=== PATIENT | male | born 1945 | race Caucasian/White ===

== ENCOUNTER 2024-09-01 18:08 | Emergency (ER) | payer MEDICARE, SELFPAY ==
[2024-09-01] VITALS (86 sets, daily range): BP systolic 94–158; BP diastolic 55–95; PULSE 63–169; RESP 8–29; TEMP 37; O2SAT 92–98; BMI 28.2
--- NOTE | 2024-09-01 18:21 | EKG_ITS ---
[facility] [address] [place] [address] Test Date: 2024-09-01 Pat Name: Nathen Gil Department: [facility] Room: Gender: Male Third Cook: CARLITOS ANDERSON : 1945 Requested By: Order Number: [id number] Reading MD: Jl Gomez MD Measurements Intervals [place] Rate: 138 P: [place]: QRS: -43 QRSD: 136 T: 101 QT: 342 QTc: 518 Interpretive Statements Atrial fibrillation with rapid ventricular response with premature ventricular or aberrantly conducted complexes Left axis deviation Left ventricular hypertrophy with QRS widening ( R in aVL , Amauri product ) Cannot rule out Anteroseptal infarct , age undetermined T wave abnormality, consider lateral ischemia NO PRIOR TRACING Electronically Signed On 09-02-2024 7:24:26 PST by Jl Gomez MD
--- NOTE | 2024-09-01 18:21 | DI.RAD.S_ITS ---
PROCEDURE: XR CHEST 1V INDICATIONS: chest pain TECHNIQUE: One view of the chest was acquired. COMPARISON: None. FINDINGS: Surgical changes and devices: Median sternotomy wires are present and appear intact. Defibrillator pads project over the chest. Lungs and pleura: Lungs are clear. No pleural effusions or pneumothorax. Mediastinum: Mediastinal contours appear normal. Heart size is normal. Bones and chest wall: No suspicious bony lesions. Overlying soft tissues appear unremarkable. IMPRESSION: No acute cardiopulmonary abnormalities or focal consolidation. Dictated by: Paxton Daniel M.D. on 09/01/2024 at 20:37 Approved by: Paxton Daniel M.D. on 09/01/2024 at 20:38
[2024-09-01] MEDS: METOPROLOL TARTRATE 5 MG/5 ML INJ IV ×3 (18:33→18:50)
--- NOTE | 2024-09-01 18:33 | ED.CHESTPAIN ---
HPI - Chest Pain General Chief Complaint: Chest Pain Stated Complaint: Chest pressure, SOB, passing out Time Seen by Provider: 09/01/24 18:33 Source: patient Mode of arrival: Wheelchair Limitations: no limitations History of Present Illness HPI narrative: 79-year-old male with history of CAD status post previous multivessel CABG, followed by physicians assistant Dr. Keenan, this evening had chest discomfort and fast heart rate sensation, sensation that he might pass out, no diaphoresis or nausea or vomiting. No history of atrial fibrillation or flutter or rhythm problems, does not recall being on amiodarone or flecainide in the past, has been taking metoprolol, still takes metoprolol. No dose changes recent. He drinks alcohol regularly but just a couple of drinks daily, last drink yesterday. Related Data Allergies Allergy/AdvReac Type Severity Reaction Status Date / Time No Known Drug Allergies Allergy Verified 09/01/24 18:18 Patient History Social History Smoking Status: Never smoker Smoking Status: Never smoker Exam Narrative Exam Narrative: GENERAL: Well-developed patient, in mild distress. HEAD: Atraumatic. Normocephalic. EYES: Pupils equal round and reactive. Extraocular motions intact. No scleral icterus. No injection or drainage. ENT: Nose without bleeding, purulent drainage. Throat without erythema, tonsillar hypertrophy or exudate. Airway patent. NECK: Trachea midline. Non tender CARDIOVASCULAR: Fast rate initial presentation, rhythm seemed unclear, without murmurs, gallops, or rubs. RESPIRATORY: Clear to auscultation. Breath sounds equal bilaterally. No wheezes, rales, or rhonchi. GASTROINTESTINAL: Abdomen soft, non-tender, nondistended. EXTREMITIES: No edema or joint tenderness. BACK: Nontender without deformity or crepitance. No flank tenderness. NEURO: AOx3. Motor functions grossly nonfocal SKIN: No rash or erythema of visible areas Initial Vital Signs Initial Vital Signs: Vital Signs Temperature 98.6 F 09/01/24 18:18 Pulse Rate 136 H 09/01/24 18:18 Respiratory Rate 18 09/01/24 18:18 Blood Pressure 117/69 09/01/24 18:18 Pulse Oximetry 97 09/01/24 18:18 Oxygen Delivery Method Room Air 09/01/24 18:18 Course Orders Ordered: ED Orders 09/01/24 18:35 CT angio chest PE protocol Stat 09/01/24 18:57 EKG-12 Lead Stat 09/01/24 19:50 EKG-12 Lead Stat 09/01/24 21:30 PTT Partial Thromboplastin Nabor Q6H 09/01/24 22:20 Troponin I Stat Discontinued Medications Aspirin (Aspirin 81 Mg Chew Tab) 324 mg PO NOW ONE Stop: 09/01/24 18:22 Last Admin: 09/01/24 21:23 Dose: 324 mg Documented By: UMA Digoxin (Digoxin 500 Mcg/2 Ml Ampul) 500 mcg IV NOW ONE Stop: 09/01/24 19:26 Last Admin: 09/01/24 19:41 Dose: 500 mcg Documented By: UMA Heparin Sodium (Porcine) (Heparin 5,000 Unit/Ml Vial) 6,500 unit 80 unit/kg (6500 unit) IV NOW ONE Stop: 09/01/24 21:22 Last Admin: 09/01/24 22:15 Dose: 6,500 unit Documented By: UMA Magnesium Sulfate (Magnesium Sulfate) 2 gm in 50 mls @ 150 mls/hr IV NOW ONE Stop: 09/01/24 19:04 Last Infusion: 09/01/24 18:58 Dose: Infused Documented By: UMA Co-signed By: LEENA Admin: 09/01/24 18:38 Dose: 150 mls/hr Documented By: UMA(2) Co-signed By: LEENA Amiodarone HCl/Dextrose (Nexterone) 150 mg in 100 mls @ 600 mls/hr IV NOW ONE Stop: 09/01/24 19:09 Last Infusion: 09/01/24 19:10 Dose: Infused Documented By: Admin: 09/01/24 18:56 Dose: 600 mls/hr Documented By: UMA(2) Amiodarone HCl/Dextrose (Nexterone) 360 mg in 200 mls @ 33.333 mls/hr IV NOW ONE; Protocol Stop: 09/02/24 01:16 Last Titration: 09/01/24 23:57 Dose: Infused Documented By: Titration: 09/01/24 19:30 Dose: 0 mls/hr, 0 mls/hr Documented By: Admin: 09/01/24 19:13 Dose: 33.3 mls/hr, 33.3 mls/hr Documented By: UMA Sodium Chloride (Normal Saline 0.9%) 1,000 mls @ 1,000 mls/hr IV BOLUS ONE Stop: 09/01/24 20:26 Last Infusion: 09/01/24 21:45 Dose: Infused Documented By: Admin: 09/01/24 20:32 Dose: 1,000 mls/hr Documented By: UMA Heparin Sodium/Dextrose (Heparin Drip) 25,000 unit in 500 mls @ 28.576 mls/hr IV CONT ALICE; Protocol Last Admin: 09/01/24 22:18 Dose: 18 units/kg/hr, 28.576 mls/hr Documented By: UMA Co-signed By: HERB Metoprolol Tartrate (Metoprolol Tartrate 5 Mg/5 Ml Inj) 5 mg IV NOW ONE Stop: 09/01/24 18:29 Last Admin: 09/01/24 18:33 Dose: 5 mg Documented By: UMA(2) Metoprolol Tartrate (Metoprolol Tartrate 5 Mg/5 Ml Inj) 5 mg IV Q5M ALICE Stop: 09/01/24 18:51 Last Admin: 09/01/24 18:50 Dose: 5 mg Documented By: UMA(2) Admin: 09/01/24 18:44 Dose: 5 mg Documented By: UMA(2) Vital Signs Vital signs: Vital Signs - 8 hr 09/01/24 19:30 09/01/24 19:30 09/01/24 19:35 Pulse Rate 65 Respiratory Rate 9 L Blood Pressure 97/62 104/61 Pulse Oximetry 94 Oxygen Delivery Method 09/01/24 19:35 09/01/24 19:40 09/01/24 19:40 Pulse Rate 68 72 Respiratory Rate 11 L 8 L Blood Pressure 94/62 Pulse Oximetry 95 95 Oxygen Delivery Method 09/01/24 19:41 09/01/24 19:44 09/01/24 19:44 Pulse Rate 70 70 Respiratory Rate 13 Blood Pressure 94/62 106/63 Pulse Oximetry 94 Oxygen Delivery Method 09/01/24 19:45 09/01/24 19:45 09/01/24 19:47 Pulse Rate 70 69 Respiratory Rate 14 17 Blood Pressure 103/75 Pulse Oximetry 94 95 Oxygen Delivery Method Room Air 09/01/24 19:47 09/01/24 19:50 09/01/24 19:50 Pulse Rate 72 Respiratory Rate 15 Blood Pressure 104/64 113/71 Pulse Oximetry 95 Oxygen Delivery Method 09/01/24 19:55 09/01/24 19:55 09/01/24 20:00 Pulse Rate 71 74 Respiratory Rate 16 14 Blood Pressure 112/72 Pulse Oximetry 94 95 Oxygen Delivery Method 09/01/24 20:00 09/01/24 20:05 09/01/24 20:05 Pulse Rate 79 Respiratory Rate 11 L Blood Pressure 104/61 108/74 Pulse Oximetry 93 Oxygen Delivery Method 09/01/24 20:09 09/01/24 20:09 09/01/24 20:10 Pulse Rate 82 Respiratory Rate 20 Blood Pressure 130/73 131/62 Pulse Oximetry 96 Oxygen Delivery Method 09/01/24 20:10 09/01/24 20:15 09/01/24 20:17 Pulse Rate 70 71 Respiratory Rate 21 10 L Blood Pressure 122/64 Pulse Oximetry 94 95 Oxygen Delivery Method 09/01/24 20:17 09/01/24 20:19 09/01/24 20:19 Pulse Rate 85 69 Respiratory Rate 22 Blood Pressure 120/75 Pulse Oximetry 94 96 Oxygen Delivery Method 09/01/24 20:20 09/01/24 20:21 09/01/24 20:21 Pulse Rate 74 77 Respiratory Rate 10 L 11 L Blood Pressure 121/65 Pulse Oximetry 96 95 Oxygen Delivery Method 09/01/24 20:25 09/01/24 20:25 09/01/24 20:30 Pulse Rate 71 70 Respiratory Rate 13 17 Blood Pressure 125/68 Pulse Oximetry 95 94 Oxygen Delivery Method Room Air 09/01/24 20:30 09/01/24 20:35 09/01/24 20:35 Pulse Rate 74 Respiratory Rate 11 L Blood Pressure 122/61 118/59 L Pulse Oximetry 94 Oxygen Delivery Method 09/01/24 20:40 09/01/24 20:45 09/01/24 20:45 Pulse Rate 76 69 Respiratory Rate 13 12 Blood Pressure 121/58 L Pulse Oximetry 94 94 Oxygen Delivery Method 09/01/24 20:50 09/01/24 20:55 09/01/24 21:00 Pulse Rate 84 77 77 Respiratory Rate 15 14 18 Blood Pressure Pulse Oximetry 94 94 93 Oxygen Delivery Method 09/01/24 21:00 09/01/24 21:05 09/01/24 21:10 Pulse Rate 92 H 80 Respiratory Rate 23 15 Blood Pressure 128/71 Pulse Oximetry 94 94 Oxygen Delivery Method 09/01/24 21:15 09/01/24 21:15 09/01/24 21:20 Pulse Rate 82 87 Respiratory Rate 12 14 Blood Pressure 121/59 L Pulse Oximetry 93 94 Oxygen Delivery Method 09/01/24 21:25 09/01/24 21:30 09/01/24 21:35 Pulse Rate 82 84 81 Respiratory Rate 13 18 15 Blood Pressure Pulse Oximetry 94 94 94 Oxygen Delivery Method 09/01/24 21:40 09/01/24 21:45 09/01/24 21:50 Pulse Rate 87 90 87 Respiratory Rate 19 11 L 17 Blood Pressure Pulse Oximetry 95 94 95 Oxygen Delivery Method 09/01/24 21:55 09/01/24 22:00 09/01/24 22:05 Pulse Rate 89 84 82 Respiratory Rate 23 12 13 Blood Pressure Pulse Oximetry 95 94 94 Oxygen Delivery Method 09/01/24 22:10 09/01/24 22:15 09/01/24 22:16 Pulse Rate 77 79 Respiratory Rate 17 19 Blood Pressure 121/72 Pulse Oximetry 94 94 Oxygen Delivery Method 09/01/24 22:16 09/01/24 22:20 09/01/24 22:25 Pulse Rate 79 80 80 Respiratory Rate 14 11 L 15 Blood Pressure Pulse Oximetry 93 94 93 Oxygen Delivery Method 09/01/24 22:30 09/01/24 22:30 09/01/24 22:30 Pulse Rate 86 86 Respiratory Rate 15 15 Blood Pressure 103/68 Pulse Oximetry 92 92 Oxygen Delivery Method 09/01/24 22:35 09/01/24 22:40 09/01/24 22:45 Pulse Rate 85 88 83 Respiratory Rate 20 22 15 Blood Pressure Pulse Oximetry 95 95 94 Oxygen Delivery Method 09/01/24 22:46 09/01/24 22:46 09/01/24 22:50 Pulse Rate 88 87 Respiratory Rate 13 22 Blood Pressure 128/63 Pulse Oximetry 95 95 Oxygen Delivery Method 09/01/24 22:55 09/01/24 23:00 09/01/24 23:00 Pulse Rate 86 86 Respiratory Rate 16 14 Blood Pressure 154/69 H Pulse Oximetry 94 94 Oxygen Delivery Method 09/01/24 23:05 09/01/24 23:10 09/01/24 23:15 Pulse Rate 78 83 84 Respiratory Rate 15 17 13 Blood Pressure Pulse Oximetry 95 95 94 Oxygen Delivery Method 09/01/24 23:15 09/01/24 23:20 09/01/24 23:25 Pulse Rate 79 84 Respiratory Rate 13 15 Blood Pressure 111/60 Pulse Oximetry 94 94 Oxygen Delivery Method 09/01/24 23:30 09/01/24 23:30 09/01/24 23:35 Pulse Rate 81 87 Respiratory Rate 16 18 Blood Pressure 109/64 Pulse Oximetry 94 94 Oxygen Delivery Method 09/01/24 23:40 09/01/24 23:45 09/01/24 23:45 Pulse Rate 82 94 H Respiratory Rate 15 29 H Blood Pressure 112/68 Pulse Oximetry 94 94 Oxygen Delivery Method 09/01/24 23:50 09/01/24 23:55 09/02/24 00:00 Pulse Rate 93 H 99 H Respiratory Rate 23 22 Blood Pressure 111/71 Pulse Oximetry 93 94 Oxygen Delivery Method 09/02/24 00:00 09/02/24 00:05 09/02/24 00:10 Pulse Rate 85 92 H 86 Respiratory Rate 11 L 11 L 16 Blood Pressure Pulse Oximetry 92 93 93 Oxygen Delivery Method 09/02/24 00:15 09/02/24 00:15 09/02/24 00:20 Pulse Rate 99 H 114 H Respiratory Rate 22 34 H Blood Pressure 126/82 Pulse Oximetry 92 Oxygen Delivery Method MDM - Chest Pain Lab Data Attestation: I reviewed the patient's lab results. Lab results narrative: White blood cell count 02082, hemoglobin 16.2, platelets adequate. Glucose 127. BUN 16 with creatinine 0.625. Sodium 133, potassium 3.9, serum CO2 21, serum chloride 103. AST 77, other LFTs normal. Lipase normal. Troponin negative/unmeasurable. Magnesium 1.7. 09/01/24 18:25 09/01/24 18:25 Labs: Lab Results 09/01/24 09/01/24 Range/Units 18:25 22:20 WBC 10.8 (4.5-11.0) X10^3/uL RBC 5.27 (4.5-5.9) X10^6/uL Hgb 16.2 (13.5-17.5) g/dL Hct 47.8 (41-53) % MCV 90.7 (80-100) fL MCH 30.7 (26-34) PG MCHC 33.9 (30-36) % RDW 13.6 (11.6-14.8) % Plt Count 165 (150-400) X10^3/uL Neut % (Auto) 54.8 (50-75) % Lymph % (Auto) 34.8 (25-40) % [place] % (Auto) 8.5 (3-14) % Eos % (Auto) 1.2 L (2-4) % Baso % (Auto) 0.7 (0-2) % Neut # (Auto) 5900 (7016-4682) /uL Lymph # (Auto) 3800 (6928-7381) /uL [place] # (Auto) 900 (0-900) /uL Eos # (Auto) 100 (0-450) /uL Baso # (Auto) 100 (0-100) /uL PT 13.0 H (9.4-12.5) SECONDS INR 1.1 (0.9-1.3) APTT 43 H (25.1-36.5) SECONDS Sodium 133 L (137-145) mmol/L Potassium 3.9 (3.4-5.1) mmol/L Chloride 103 (98-107) mmol/L Carbon Dioxide 21 L (22-32) mmol/L BUN 16 (9-20) mg/dL Creatinine 0.65 L (0.66-1.25) mg/dL Estimated GFR > 60 (>60) mL/min BUN/Creatinine Ratio 24.6 H (6-22) Glucose 127 H (80-110) mg/dL Calcium 9.3 (8.4-10.2) mg/dL Magnesium 1.7 (1.6-2.3) mg/dL Total Bilirubin 0.7 (0.2-1.3) mg/dL AST 77 H (17-59) IU/L ALT 41 (<50) IU/L Alkaline Phosphatase 72 (38-126) U/L Total Creatine Kinase 481 H (55-170) U/L Troponin I < 0.012 0.015 (0.01-0.034) ng/mL NT-Pro-B Natriuret Pep 414 (<450) pg/mL Total Protein 6.5 (6.3-8.2) g/dL Albumin 4.1 (3.5-5.0) g/dL Globulin 2.4 (1.7-4.1) g/dL Albumin/Globulin Ratio 1.7 (1.0-2.8) Lipase 100 (23-300) U/L Imaging Data Chest x-ray: Radiologist's Impression: Close Chest CTA (Signed) Lele Rodriges - 09/01/24 Chest X-Ray (Signed) Paxton Daniel - 09/01/24 Launch?Image [address] [address] XRay Report Signed Patient: Nathen Gil MR#: [id number] : 1945 Acct:[id number] Age/Sex: 79 / M Date of Service: 09/01/24 Loc: ED Accession Number: [id number] Procedure: XR chest 1V Ordering Provider: Adi Pandey D.O. PROCEDURE: XR CHEST 1V INDICATIONS: chest pain TECHNIQUE: One view of the chest was acquired. COMPARISON: None. FINDINGS: Surgical changes and devices: Median sternotomy wires are present and appear intact. Defibrillator pads project over the chest. Lungs and pleura: Lungs are clear. No pleural effusions or pneumothorax. Mediastinum: Mediastinal contours appear normal. Heart size is normal. Bones and chest wall: No suspicious bony lesions. Overlying soft tissues appear unremarkable. IMPRESSION: No acute cardiopulmonary abnormalities or focal consolidation. Dictated by: Paxton Daniel M.D. on 09/01/2024 at 20:37 Approved by: Paxton Daniel M.D. on 09/01/2024 at 20:38 CT angiogram chest.: Radiologist's Impression: [address] [address] [address] Scan Report Signed Patient: Nathen Gil MR#: [id number] : 1945 Acct:[id number] Age/Sex: 79 / M Date of Service: 09/01/24 Loc: ED Accession Number: [id number] Procedure: CT angio chest PE protocol Ordering Provider: Jacinto Hernandez MD PROCEDURE: CT ANGIO CHEST PE PROTOCOL INDICATIONS: chest pain, near syncope TECHNIQUE: After the administration of intravenous contrast, 2 mm thick sections acquired from the pulmonary apices to the posterior costophrenic angles. 3-dimensional maximum intensity projection (MIP) coronal and sagittal reformats were then acquired through the thorax. For radiation dose reduction, the following was used: automated exposure control, adjustment of mA and/or kV according to patient size. COMPARISON: None. FINDINGS: Image quality: Diagnostic. Thyroid: Within normal limits. Cardiac: Heart size within normal limits. No pericardial effusion. RV: LV ratio within normal limits. No bowing of the interventricular septum. Aorta: Thoracic aortic diameter within normal limits. Pulmonary Artery: Main pulmonary artery diameter within normal limits. Central filling defect in the right lower lobe posterior segmental artery (-103). Lungs: Mild apical predominant centrilobular and paraseptal emphysema. Bibasilar subsegmental atelectasis with lower lobe dependent bronchiolectasis. Pleura: No pneumothorax or pleural effusion. Airways: The trachea and mainstem bronchi are patent. Lymph Nodes: No mediastinal, hilar, or axillary lymphadenopathy. Esophagus: Small hiatal hernia. Bones: Prior median sternotomy. Diffuse idiopathic skeletal hyperostosis of the thoracic spine (). Diffuse osteopenia. Upper Abdomen: Subcentimeter hypodense lesions in the liver, too small to characterize, statistically likely to represent simple cysts. IMPRESSION: 1. Left lower lobe posterior segmental arterial embolism. 2. Mild emphysema with bibasilar atelectasis. These findings were communicated via telephone to the ordering provider, Dr Hernandez, by Lele Rodriges MD on 09/01/24 at 9:20 pm. Dictated by: Lele Rodriges M.D. on 09/01/2024 at 21:13 Approved by: Lele Rodriges M.D. on 09/01/2024 at 21:21 ECG Data Attestation: I personally reviewed and interpreted this ECG as follows: Interpretation: 1825, atrial fibrillation with rapid ventricular response rate 138, no obvious ST segment elevation or depression changes. QRS 136, QTC 518. 1901, atrial fibrillation with ventricular rate 81, left ventricular hypertrophy, wide QRS. QRS 142, QTC 457. 1954, atrial fibrillation with ventricular rate 69, similar appearance wide QRS LVH pattern, QRS 140, QTC 454. MDM Narrative Medical decision making narrative: 79-year-old male with history of CAD had tachyarrhythmia palpitation like symptoms and near-syncope with chest discomfort. No history of atrial fibrillation known in the past. No history of blood clots. Not taking blood thinner medications. Mentating, with wide complex tachycardia variable rate, mostly 160-170bpm, possible AFib with RVR and variable conduction or underlying bundle branch block, systolic blood pressure 140. Currently stable, though he gave verbal consent for cardioversion if need. Does take metoprolol, does drink alcohol. IV metoprolol 5 mg, IV magnesium 2g. Improved heart rate 130-120 range, wide complex again seen, atrial fibrillation noted. We will give further IV metoprolol 5 mg x 3 total doses if needed for further rate control, if blood pressure tolerates. Generally has decreased ventricular response rate after 2 doses metoprolol, 110-130 range ventricular response rate, still having intermittent runs of tachycardia 160-180, add IV amiodarone 150 mg. GFR favorable, CTA chest ordered. 1929, case discussed with on-call Cardiology [facility] Dr. Segal, who reviewed transmitted EKGs, agrees low blood pressure might be amiodarone effect, bolus in, instead of Amio infusion consider IV digoxin 0.5mg bolus for rate control if needed. IV digoxin ordered. Potassium level adequate. Agrees with need for transfer, can consult if patient transferred to [facility] facility. We are awaiting CTA chest results. 1999, heart rate further decreased after digoxin bolus and amiodarone bolus, had prior IV metoprolol doses x2, now ventricular response rate 100-120, blood pressure 100, IV fluid bolus. Await CTA results, possible transfer to [facility] or other facility with Cardiology capability. 2119, phone call from Radiology, patient has acute appearing left-sided small PE, no RV dilatation changes. See dictated report. We will initiate IV heparin bolus then infusion per PE/VTE protocol. Transfer to [facility] or other cardiology capable facility. 2144, no beds currently [facility], bed search in progress. Last vitals systolic blood pressure 120, AFib on monitor with rate now 80 temp 110 range. 2300, discussed with Dr Higgins of [facility], can accept but no bed until tomorrow. 2310, discussed with [facility], no cardiac beds available at [facility], they will query their other member facilities. 2330, case discussed with cardiology [facility] Dr Jean Paul Bolton, who accepts patient for transfer, requests through their ED, call report [phone]. DIRECTOR CREDIT RISK will contact their ED. ED [facility] able to accommodate the patient, we will arrange ground transport. Patient/family made aware. Critical Care Time Critical Care Time Critical Care Time: Yes Total Critical Care Time: 35 Attestation: The high probability of a clinically significant, sudden or life threatening deterioration of the [cardiopulmonary] system(s) required my full and direct attention, intervention and personal management. The aggregate critical care time was [45] minutes. This time is in addition to time spent performing reported procedures but includes the following: [x] Data Review and interpretation [x] Patient assessment and monitoring of vital signs [x] Documentation [x] Medication orders and management Discharge Plan Departure Patient Disposition: [facility] Clinical Impression: Atrial fibrillation with rapid ventricular response, Palpitations, Near syncope, Pulmonary embolism
[2024-09-01] MEDS: MAGNESIUM SULFATE 2 GM/50 ML PIGGYBACK IV (18:38)
[2024-09-01 18:39] LABS: Add Manual Diff / Slide Review NO; Basophils Absolute Auto 100 /uL (0-100); Basophils Percent Auto 0.7 % (0-2); Eosinophils Absolute Auto 100 /uL (0-450); Eosinophils Percent Auto 1.2 % (2-4); Hematocrit 47.8 % (41-53); Hemoglobin 16.2 g/dL (13.5-17.5); Lymphocytes Absolute Auto 3800 /uL (1100-4500); Lymphocytes Percent Auto 34.8 % (25-40); Mean Corpuscular HGB Conc 33.9 % (30-36); Mean Corpuscular Hemoglobin 30.7 PG (26-34); Mean Corpuscular Volume 90.7 fL (80-100); Monocytes Absolute Auto 900 /uL (0-900); Monocytes Percent Auto 8.5 % (3-14); Neutrophils Absolute Auto 5900 /uL (1500-7000); Neutrophils Percent Auto 54.8 % (50-75); Platelet Count 165 X10^3/uL (150-400); Red Blood Cell Count 5.27 X10^6/uL (4.5-5.9); Red Cell Distribution Width 13.6 % (11.6-14.8); White Blood Cell Count 10.8 X10^3/uL (4.5-11.0)
[2024-09-01] MEDS: AMIODARONE 150 MG/100 ML 600 MG IV (18:56)
--- NOTE | 2024-09-01 18:57 | EKG_ITS ---
[place] [id number], [place] [address] Test Date: 2024-09-01 Pat Name: Nathen Gil Department: Room: Gender: Male [place]: BRANDON : 1945 Requested By: Order Number: [id number] Reading MD: Jl Gomez MD Measurements Intervals [place] Rate: 81 P: [place]: QRS: -41 QRSD: 142 T: 123 QT: 394 QTc: 457 Interpretive Statements Atrial fibrillation Left axis deviation Left ventricular hypertrophy with QRS widening and repolarization abnormality ( R in aVL , Amauri product ) Cannot rule out Anteroseptal infarct , age undetermined Electronically Signed On 09-02-2024 7:24:35 PST by Jl Gomez MD
[2024-09-01 19:05] LABS: INR 1.1 (0.9-1.3)
[2024-09-01 19:07] LABS: PTT Partial Thromboplastin Tim 43 SECONDS (25.1-36.5)
[2024-09-01 19:08] LABS: Alanine Aminotransferase 41 IU/L (<50); Albumin 4.1 g/dL (3.5-5.0); Albumin Globulin Ratio 1.7 (1.0-2.8); Alkaline Phosphatase 72 U/L (38-126); Aspartate Aminotransferase 77 IU/L (17-59); BUN Creatinine Ratio 24.6 (6-22); Bilirubin Total 0.7 mg/dL (0.2-1.3); Blood Urea Nitrogen 16 mg/dL (9-20); Calcium 9.3 mg/dL (8.4-10.2); Carbon Dioxide 21 mmol/L (22-32); Chloride 103 mmol/L (98-107); Creatine Kinase 481 U/L (55-170); Estimated Glomerular Filt Rate > 60 mL/min (>60); Globulin 2.4 g/dL (1.7-4.1); Glucose 127 mg/dL (80-110); HEMOLYSIS 23 (0-50); Lipase 100 U/L (23-300); Magnesium 1.7 mg/dL (1.6-2.3); Potassium 3.9 mmol/L (3.4-5.1); Sodium 133 mmol/L (137-145); Total Protein 6.5 g/dL (6.3-8.2)
[2024-09-01] MEDS: AMIODARONE 360 MG/200 ML PIGGYBACK 33.3 MG IV (19:13)
[2024-09-01 19:19] LABS: NT-proBNP (BNP-Adult 18+) 414 pg/mL (<450); Troponin I < 0.012 ng/mL (0.01-0.034)
--- NOTE | 2024-09-01 19:26 | PC.NURSE ---
at triage patient very tachycardic, hypotensive, irregullar heart rhythm a fib with chest pressure 5/10, shortness of breath, and feeling like he would pass out. Patient currently denies chest pressure, dizziness, feeling like he will pass out. heart rate 50-60s with NIBP monitoring q 5 minutes. Metoprolol IV push doses completed and Amiodarone Bolus completed. Amiodarone 1st infusion running 360 mg/200 ml infusing @ 33.33 ml/hr x 6 hours. Repeat EKG completed. at bedside.
[2024-09-01] MEDS: DIGOXIN 500 MCG/2 ML AMPUL IV (19:41)
--- NOTE | 2024-09-01 19:50 | EKG_ITS ---
[facility] [address] [place] [address] Test Date: 2024-09-01 Pat Name: Nathen Gil Department: [facility] Room: Gender: Male Application Support: BRANDON : 1945 Requested By: Order Number: [id number] Reading MD: Jl Gomez MD Measurements Intervals [place] Rate: 69 P: [place]: QRS: -43 QRSD: 140 T: 132 QT: 424 QTc: 454 Interpretive Statements Atrial fibrillation Left axis deviation Left ventricular hypertrophy with QRS widening and repolarization abnormality ( R in aVL , Baxter product ) Cannot rule out Anteroseptal infarct , age undetermined NO SIGNIFICANT CHANGE FROM PRIOR TRACING Electronically Signed On 09-02-2024 7:24:41 PST by Jl Gomez MD
[2024-09-01] MEDS: SODIUM CHLORIDE 0.9% 1,000 ML 1000 ML IV (20:32)
[2024-09-01] MEDS: ASPIRIN 81 MG CHEW TAB 324 MG PO (21:23)
[2024-09-01] MEDS: HEPARIN 5,000 UNIT/ML VIAL 6500 UNIT IV (22:15)
[2024-09-01] MEDS: HEPARIN DRIP 25,000 UNIT/500 ML IV.SOLN 28.576 UNIT IV (22:18)
[2024-09-01 22:51] LABS: Troponin I 0.015 ng/mL (0.01-0.034)
--- NOTE | 2024-09-01 23:58 | PC.NURSE ---
HYDRAULIC GOVERNOR ASSEMBLER note: Attempting to find placement for patient called the following places with the following responses: [facility]: 2123 Spoke to Kanika, currently are boarding patients but patient is on their waitlist. [facility]: 2126 spoke w/ Toby. Sent packet over, patient is on their waitlist, but boarding a lot of patients. [facility]: 2141 Spoke w/ Tha. Patient was accepted but do not have beds. [facility]: 2221 spoke with Terrie. No beds [facility]: 2209 (then lots of messages, leaving messages and will get back to us) [facility], on waitlist but told us to keep looking [facility]: 2232 left a message, Zee got back to us. She had me page cardiology. Dr. Jean Paul Bolton accepted patient. [facility]: 2234 spoke w/ Yesenia, she took information. Patient is on waitlist. [facility]: 2306 spoke with Brina. She said she'd call us back. Patient was accept to [facility] to an ED to ED transfer at 2330.
[2024-09-02] VITALS: BP 111/71; PULSE 85; RESP 11; O2SAT 92
[2024-09-02 00:05] VITALS: PULSE 92; RESP 11; O2SAT 93
[2024-09-02 00:10] VITALS: PULSE 86; RESP 16; O2SAT 93
[2024-09-02 00:15] VITALS: BP 126/82; PULSE 99; RESP 22; O2SAT 92
[2024-09-02 00:20] VITALS: PULSE 114; RESP 34
--- NOTE | 2024-09-02 00:47 | PC.NURSE ---
# [phone] [facility] - called for update on patient, patient report, and requesting we fax a facesheet. Solo states patient is supposed to be a direct admit. I Explained Report had been called already and patient accepted as ER to ER with Cardiology as well. Accepting Docs Dr Santiago & Dr Hoang canseco report called to Mira RN. EMTALA Form Completed and verified. Also explained patient is on the way in Ambulance to [facility]. Solo requests we fax facesheet to and states she will us back. Notified ED HOSIERY MENDER of request for faxed facesheet & ER veterans service representative of conversation with Solo.
== END 2024-09-02 00:26 | disposition short-term general hospital (02) ==
PROVIDERS: Student in an Organized Health Care Education/Training Program; Emergency Provider Emergency Medicine
DX: I48.20 Chronic atrial fibrillation, unspecified (principal); R00.2 Palpitations; R55 Syncope and collapse; I26.99 Other pulmonary embolism without acute cor pulmonale
CPT/HCPCS: 36415; 71045; 71275; 80053; 82550; 83690; 83735; 83880; 84484; 85025; 85610; 85730; 93005; 93010; 96361; 96365; 96366; 96367; 96375; 99285; 99291; J0282; J1160; J1644; J3475; Q9967

== ENCOUNTER 2024-09-04 23:55 | Emergency (ER) | payer MEDICARE, SELFPAY ==
[2024-09-05 00:03] VITALS: BP 170/82; PULSE 52; RESP 16; TEMP 36.6; O2SAT 96; BMI 28.2
[2024-09-05 01:54] VITALS: O2SAT 98
[2024-09-05 01:55] VITALS: BP 165/76; PULSE 54; RESP 14; O2SAT 95
[2024-09-05 02:00] VITALS: BP 156/73; PULSE 53; RESP 14; O2SAT 95
--- NOTE | 2024-09-05 02:05 | ED.GENADULT ---
HPI - General Adult General Chief complaint: Hypertension Stated complaint: HIGH BLOOD PRESSURE Time Seen by Provider: 09/05/24 02:05 Source: patient Mode of arrival: Ambulatory History of Present Illness HPI narrative: Patient is a 79-year-old male past medical history of recently diagnosed AFib on Eliquis, CAD status post CABG follows with Dr. Keenan (cardiology) comes into the ED for evaluation of high blood pressure as well as bright red blood per rectum. To note patient recently diagnosed with new onset AFib approximately 4 days ago was started on Eliquis for this, states he does have a history of hemorrhoids, states he is only noticing some bright red blood whenever he wipes. He denies any other symptoms such as headache visual disturbances chest pain shortness of breath fever chills nausea vomiting abdominal pain or any other GI/ symptoms at this time. Related Data Allergies Allergy/AdvReac Type Severity Reaction Status Date / Time No Known Drug Allergies Allergy Verified 09/01/24 18:18 Review of Systems Review of Systems Narrative: General: Denies fever, chills, weight loss HEENT: Denies headache, eye drainage, eye irritation, head trauma, sore throat, voice change Cardiovascular: Positive high blood pressure Denies any chest pain, palpitations, shortness of breath, tachycardia Respiratory: Denies any shortness of breath, cough, wheeze, stridor GI/: Positive bright red blood per rectum Denies any abdominal pain, nausea, vomiting, diarrhea, melanotic stools, urinary frequency, urinary retention, dysuria, hematuria MSK: Denies any joint pain, muscle pains, swelling Skin: Denies any rashes, lesions, discoloration Neuro: Denies any headache, lightheadedness, dizziness, fainting, weakness Psych: Denies SI/HI Patient History Social History Smoking Status: Never smoker Smoking Status: Never smoker Exam Narrative Exam Narrative: General: Cooperative, comfortable, well-developed, not in acute distress HEENT: Normocephalic, atraumatic, PERRLA, normal sclera, eyelids normal, Neck: Active full range of motion, atraumatic Chest: Normal to inspection, negative crepitus, no overlying erythema ecchymosis Respiratory: Normal respiratory effort, not in acute respiratory distress, clear to auscultation bilaterally negative cough, wheeze, tachypnea, rhonchi, rales Cardiology: Regular rate rhythm negative gallop, murmur, rubs GI/: Normal to inspection, soft, nonrigid, no tenderness to palpation, exam deferred MSK: Full range of active range of motion of all 4 extremities, atraumatic Skin: No rashes lesions noted Neuro: Alert awake oriented x3, moves all 4 extremities spontaneously, cranial nerves intact, able to answer all questions appropriately follows commands appropriately Psych: Cooperative, negative suicidal or homicidal ideations Initial Vital Signs Initial Vital Signs: Vital Signs Temperature 97.9 F 09/05/24 00:03 Pulse Rate 52 L 09/05/24 00:03 Respiratory Rate 16 09/05/24 00:03 Blood Pressure 170/82 H 09/05/24 00:03 Pulse Oximetry 96 09/05/24 00:03 Oxygen Delivery Method Room Air 09/05/24 00:03 Course Orders Ordered: ED Orders 09/05/24 02:00 CMP [Comprehensive Metabolic Panel] Stat Complete Blood Count AUTO DIFF Stat PTT Partial Thromboplastin Nabor Stat Prothrombin Time INR Stat Vital Signs Vital signs: Vital Signs - 8 hr 09/05/24 00:03 09/05/24 01:54 09/05/24 01:55 Temperature 97.9 F Pulse Rate 52 L 54 L Respiratory Rate 16 14 Blood Pressure 170/82 H Pulse Oximetry 96 98 95 Oxygen Delivery Method Room Air Room Air 09/05/24 01:55 09/05/24 02:00 09/05/24 02:00 Temperature Pulse Rate 53 L Respiratory Rate 14 Blood Pressure 165/76 H 156/73 H Pulse Oximetry 95 Oxygen Delivery Method Room Air 09/05/24 02:30 09/05/24 02:31 09/05/24 02:31 Temperature Pulse Rate 49 L 51 L Respiratory Rate 14 Blood Pressure 146/72 H Pulse Oximetry 96 95 Oxygen Delivery Method Room Air Medical Decision Making Differential Diagnosis Differential Diagnosis: Hemorrhoids, anemia, hypertension Lab Data 09/05/24 02:00 09/05/24 02:00 Labs: Lab Results 09/05/24 Range/Units 02:00 WBC 8.5 (4.5-11.0) X10^3/uL RBC 5.33 (4.5-5.9) X10^6/uL Hgb 16.3 (13.5-17.5) g/dL Hct 48.3 (41-53) % MCV 90.6 (80-100) fL MCH 30.6 (26-34) PG MCHC 33.8 (30-36) % RDW 13.7 (11.6-14.8) % Plt Count 164 (150-400) X10^3/uL Neut % (Auto) 59.5 (50-75) % Lymph % (Auto) 29.1 (25-40) % Graham % (Auto) 8.6 (3-14) % Eos % (Auto) 1.8 L (2-4) % Baso % (Auto) 1.0 (0-2) % Neut # (Auto) 5100 (0058-5588) /uL Lymph # (Auto) 2500 (2619-2136) /uL Graham # (Auto) 700 (0-900) /uL Eos # (Auto) 200 (0-450) /uL Baso # (Auto) 100 (0-100) /uL PT 16.5 H (9.4-12.5) SECONDS INR 1.5 H (0.9-1.3) APTT 49 H (25.1-36.5) SECONDS Sodium 137 (137-145) mmol/L Potassium 4.3 (3.4-5.1) mmol/L Chloride 103 (98-107) mmol/L Carbon Dioxide 23 (22-32) mmol/L BUN 13 (9-20) mg/dL Creatinine 0.58 L (0.66-1.25) mg/dL Estimated GFR > 60 (>60) mL/min BUN/Creatinine Ratio 22.4 H (6-22) Glucose 98 (80-110) mg/dL Calcium 9.6 (8.4-10.2) mg/dL Total Bilirubin 0.8 (0.2-1.3) mg/dL AST 47 (17-59) IU/L ALT 39 (<50) IU/L Alkaline Phosphatase 72 (38-126) U/L Total Protein 7.1 (6.3-8.2) g/dL Albumin 4.5 (3.5-5.0) g/dL Globulin 2.6 (1.7-4.1) g/dL Albumin/Globulin Ratio 1.7 (1.0-2.8) MDM Narrative Medical decision making narrative: Patient is a 79-year-old male with a history of hypertension CABG AFib on Eliquis recent diagnosis comes into the ED for evaluation of high blood pressure. Patient states that he checked his blood pressure earlier today when he was taking his Eliquis and noted that his systolic blood pressure was in the 170s, was denying any symptoms at the time. He also states that he has intermittent bright red blood per rectum secondary to hemorrhoids, he states that he noticed a little bit more bleeding than normal today, but states that he has not having any active bleeding at this time. States that he should ?mentioned it did offer patient rectal exam however he states that he has not too concerned about it but would like lab work performed, patient without any anemia, patient has not had any intervention with his blood pressure most recent blood pressure systolic 146/72. Patient still without any headache no neurological deficits, NIH of 0. Patient was given strict return precautions he verbalized understanding of this and agrees to being discharged home with outpatient follow up. Discharge Plan Departure Patient Disposition: Home Clinical Impression: Asymptomatic hypertension Activity Restrictions/Additional Instructions: Please follow up with your primary care doctor and guest services associate for a scheduled appointment Please read the discharge instructions sheet carefully and bring all papers to all doctor follow-up visits, as it may contain information that your doctor may want to see. Disease processes change and evolve, if your symptoms worsen or if you develop any new symptoms that are concerning to you please return for evaluation. Your evaluation today does not show any evidence of any life-threatening/serious illnesses requiring admission to the hospital or surgery. Please follow-up with your doctor for re-evaluation in approximately 1 day. Seek immediate medical attention for any worrisome symptoms. *If you do not have a primary care provider please contact the [facility] Resource line at [phone]. They will ask some questions about your medical history and help get you set up with a doctor in the community. Stand Alone Forms: Patient Portal/API/Survey
--- NOTE | 2024-09-05 02:09 | PC.NURSE ---
Pt mentioned to RN noted rectal bleeding starting this AM with dale red blood in toilet x 2 episodes, with concern d/t recently starting blood thinners. Denies pain. Dr. Chavez informed. Orders rcv'd.
[2024-09-05 02:12] LABS: Add Manual Diff / Slide Review NO; Basophils Absolute Auto 100 /uL (0-100); Eosinophils Absolute Auto 200 /uL (0-450); Eosinophils Percent Auto 1.8 % (2-4); Hematocrit 48.3 % (41-53); Hemoglobin 16.3 g/dL (13.5-17.5); Lymphocytes Absolute Auto 2500 /uL (1100-4500); Lymphocytes Percent Auto 29.1 % (25-40); Mean Corpuscular HGB Conc 33.8 % (30-36); Mean Corpuscular Hemoglobin 30.6 PG (26-34); Mean Corpuscular Volume 90.6 fL (80-100); Monocytes Absolute Auto 700 /uL (0-900); Monocytes Percent Auto 8.6 % (3-14); Neutrophils Absolute Auto 5100 /uL (1500-7000); Neutrophils Percent Auto 59.5 % (50-75); Platelet Count 164 X10^3/uL (150-400); Red Blood Cell Count 5.33 X10^6/uL (4.5-5.9); Red Cell Distribution Width 13.7 % (11.6-14.8); White Blood Cell Count 8.5 X10^3/uL (4.5-11.0)
[2024-09-05 02:21] LABS: Alanine Aminotransferase 39 IU/L (<50); Albumin 4.5 g/dL (3.5-5.0); Albumin Globulin Ratio 1.7 (1.0-2.8); Alkaline Phosphatase 72 U/L (38-126); Aspartate Aminotransferase 47 IU/L (17-59); BUN Creatinine Ratio 22.4 (6-22); Bilirubin Total 0.8 mg/dL (0.2-1.3); Blood Urea Nitrogen 13 mg/dL (9-20); Calcium 9.6 mg/dL (8.4-10.2); Carbon Dioxide 23 mmol/L (22-32); Chloride 103 mmol/L (98-107); Estimated Glomerular Filt Rate > 60 mL/min (>60); Globulin 2.6 g/dL (1.7-4.1); Glucose 98 mg/dL (80-110); HEMOLYSIS < 15 (0-50); Potassium 4.3 mmol/L (3.4-5.1); Sodium 137 mmol/L (137-145); Total Protein 7.1 g/dL (6.3-8.2)
[2024-09-05 02:30] VITALS: PULSE 49; O2SAT 96
[2024-09-05 02:31] VITALS: BP 146/72; PULSE 51; RESP 14; O2SAT 95
[2024-09-05 02:40] LABS: INR 1.5 (0.9-1.3); Prothrombin Time 16.5 SECONDS (9.4-12.5)
[2024-09-05 02:42] LABS: PTT Partial Thromboplastin Tim 49 SECONDS (25.1-36.5)
== END 2024-09-05 03:02 | disposition home or self-care (01) ==
PROVIDERS: Emergency Provider Student in an Organized Health Care Education/Training Program
DX: I10 Essential (primary) hypertension (principal); I48.91 Unspecified atrial fibrillation; Z79.01 Long term (current) use of anticoagulants; K62.5 Hemorrhage of anus and rectum
CPT/HCPCS: 36415; 80053; 85025; 85610; 85730; 99283